=== PATIENT | female | born 1985 | race Caucasian/White ===

== ENCOUNTER 2016-09-23 01:47 | Emergency (ER) | payer OTHER ==
[~2016-09-23 01:47] MED LIST: IBUPROFEN600 MG PO
== END 2016-09-23 03:50 | disposition home or self-care (01) ==
LOC: ER1 01:47
DX: S93.402A Sprain of unspecified ligament of left ankle, initial encounter (principal); F41.9 Anxiety disorder, unspecified; F17.210 Nicotine dependence, cigarettes, uncomplicated; Z88.8 Allergy status to other drugs, medicaments and biological substances; X50.1XXA Overexertion from prolonged static or awkward postures, initial encounter; Y92.009 Unspecified place in unspecified non-institutional (private) residence as the place of occurrence of the external cause; Z79.899 Other long term (current) drug therapy
CPT/HCPCS: 73590; 73610; 99283

== ENCOUNTER 2021-10-28 16:12 | Emergency (ER) | payer OTHER ==
[~2021-10-28 16:12] MED LIST changes: +CLEOCIN HCL300 MG PO; +IBUPROFEN800 MG PO; +NORCO 7.5-3251 EACH PO
== END 2021-10-28 19:32 | disposition left against medical advice (07) ==
LOC: ER1 16:12
DX: Z53.21 Procedure and treatment not carried out due to patient leaving prior to being seen by health care provider (principal)

== ENCOUNTER 2021-10-28 23:48 | Emergency (ER) | payer OTHER | END 2021-10-29 01:30 | disposition left against medical advice (07) | LOC: ER1 23:48 | DX: Z53.21 Procedure and treatment not carried out due to patient leaving prior to being seen by health care provider (principal) ==

== ENCOUNTER 2022-02-01 01:14 | Emergency (ER) | payer OTHER ==
[2022-02-01 02:13] LABS: HEMOGLOBIN 12.7 gm/dl (12.3-15.3); RED BLOOD COUNT 4.25 M/UL (4.00-5.10); WHITE BLOOD COUNT 9.7 K/UL (4.5-11.0)
[2022-02-01 02:25] LABS: BUN/CREATININE RATIO 14 (0-10)
[2022-02-01] MEDS ORDERED: AUGMENTIN XR 11 EACH PO (03:34)
== END 2022-02-01 03:43 | disposition home or self-care (01) ==
LOC: ER1 01:14
PROVIDERS: Student in an Organized Health Care Education/Training Program
DX: H66.93 Otitis media, unspecified, bilateral (principal); H60.91 Unspecified otitis externa, right ear; E87.6 Hypokalemia; Z20.822 Contact with and (suspected) exposure to COVID-19; F17.210 Nicotine dependence, cigarettes, uncomplicated; Z88.8 Allergy status to other drugs, medicaments and biological substances
CPT/HCPCS: 0240U; 80053; 83605; 84439; 84443; 85025; 96374; 99283; J0696